=== PATIENT | male | born 1990 | race Caucasian/White ===

== ENCOUNTER → 2022-12-01 11:30 | Outpatient (BNVA) | payer OTHER, SELFPAY | PROVIDERS: Family Provider Nurse Practitioner Family; PCP Family Medicine; Visit Provider Family Medicine | DX: Z68.39 Body mass index [BMI] 39.0-39.9, adult (principal) | CPT/HCPCS: 80053; 80061; 81000; 83036; 84439; 84443; 85025 ==

== ENCOUNTER 2023-03-23 11:00 | Outpatient (CLI) | payer OTHER, SELFPAY | END 2023-03-23 11:01 | disposition home or self-care (01) | LOC: SLEEP 03-28 13:00 | PROVIDERS: Family Provider Nurse Practitioner Family; PCP Family Medicine; Visit Provider Family Medicine | DX: G47.33 Obstructive sleep apnea (adult) (pediatric) (principal) | CPT/HCPCS: G0399 ==

== ENCOUNTER 2024-09-05 15:30 | Outpatient (CLI) | payer OTHER, SELFPAY ==
[2024-09-05 16:09] LABS: PH Semen 8.5 (7.0-8.0); Red Blood Count Semen 0-4 /hpf; Viscosity Semen Normal; White Blood Count Semen 0-4 /hpf
[2024-09-05 16:10] LABS: Pathology Referral Yes
== END 2024-09-05 15:31 | disposition home or self-care (01) ==
PROVIDERS: Family Provider Nurse Practitioner Family; PCP Family Medicine; Visit Provider Nurse Practitioner Women's Health
DX: N46.9 Male infertility, unspecified (principal)
CPT/HCPCS: 80503; 89320